=== PATIENT | female | born 1960 | race Caucasian/White ===

== ENCOUNTER 2021-09-01 04:24 | Day surgery (SDC) | payer OTHER, SELFPAY ==
[2021-08-24 09:24] VITALS: BMI 23.5
--- NOTE | 2021-08-24 09:32 | PC.NURSE ---
Report to the Outpatient Waiting Room, entrance under the green pavilion located off [facility], at time 0830 on date 09/01/21. OR Time: 1030. - You and your visitor will be asked a series of questions to screen for COVID 19 for your protection. - A mask is required within the hospital. One visitor will be allowed to accompany the patient into the hospital. Patients visitor will be instructed to remain with patient at all times or leave the building. We will allow the visitor to come back to the postoperative area when patient is ready. Preoperative COVID Testing Requirements: No COVID Test needed if: (proof is required; if not received patient will have Rapid Test prior to entry) - Patient has received COVID Vaccine at least 14 days prior to procedure date or - Patient has positive COVID test result within last 90 days of surgery date. COVID Test needed if above criteria is not met Patients may have clear liquids (water, carbonated beverages, clear teas, apple juice) until 3 hours prior to surgery with a maximum of 20 ounces. - No food from midnight until time of surgery Take the following medications with a SIP of water the morning of surgery: LEVOTHYROXINE Medications to discontinue per physician: VITAMINS/SUPPLEMENTS Date to take last dose: 08/28/21 Please no make-up, nail palestinian, hairspray, perfume, deodorant, or body powder the day of surgery. No jewelry (including any body piercings) or valuables the day of surgery, leave them at home. Please take a shower or bath the night before, or the morning of, surgery with an antibacterial soap. Wear comfortable, loose fitting clothing. - Jewelry must be removed prior to entering the operating room. Rings and piercings that are not removed may be cut off. - The hospital will not accept responsibility for valuables. - Please leave all valuables, including medications, at home the day of surgery. If you are going home after surgery, a licensed local company tanker driver must drive you home. - NO public transportation without another adult. - We recommend that an adult stay with you for 24 hours following discharge. - We also recommend that you do not drive, make important decision, drink alcoholic beverages, or take any drugs that were not prescribed by your health care provider for at least 24 hours after your discharge time. Follow any additional instructions given to you from your surgeon. Telephone instructions given to JENNIFER MIKE and asked if any additional questions and then verbalized understanding. Patient advised to call surgeon office or pre surgery nurse liaison [phone] if any additional questions.
--- NOTE | 2021-09-01 06:44 | P.PNAN_ITS ---
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 acidophilus-L. rhamnosus 1 cap PO DAILY 08/24/21 09/01/21 History [Probiotic] cholecalciferol (vitamin D3) 50 mcg PO DAILY 08/24/21 09/01/21 History [Vitamin D3] levothyroxine 75 mcg PO DAILY 08/24/21 09/01/21 History multivitamin 1 tablet PO DAILY 08/24/21 09/01/21 History Patient hx anesthesia problems: none Family hx anesthesia problems: none Results Review: All pre-operative results and documents have been reviewed as part of the pre-operative evaluation. FOR[facility]LY [facility] Past Medical History Medical History (Updated 09/01/21 @ 06:44 by Aidan Stacy MD) Hypothyroidism Surgical History Surgical History (Updated 09/01/21 @ 06:44 by Aidan Stacy MD) History of foot surgery Social History Social History Smoking status: Never smoker Alcohol intake: current Drinks per week: 1 Substance use: never Substance use type: does not use Living arrangements: with family Additional living arrangements comments: CURRENTLY WORKING OUT OF TOWN Spiritual care concerns: No Anes - Eval Final PreProcedure Day of Procedure 09/01/21 06:44 Patient weight: normal Heart: regular rate and rhythm Lungs: clear to auscultation Airway: Mallampati scale class III and special considerations poor opening (small mouth, no hx of TMJ issues) Neurological: alert and oriented Last oral intake: >/= 8 hours ASA classification: II Emergent: no Anesthetic plan: proceed Anesthesia type and monitoring: general GIVS and standard monitoring Results Review: All pre-operative results and documents have been reviewed as part of the pre-operative evaluation. Informed Consent: The patient's anesthetic plan and its attendant risks and benefits were discussed with the patient/family/POA. Questions were solicited and answers provided to the satisfaction of the patient/family/POA.
[2021-09-01] MEDS: LACTATED RINGERS 1,000 ML 30 ML IV CONT (06:56)
--- NOTE | 2021-09-01 07:07 | WPDHPUPDATE1 ---
History and Physical Update Update Date/Time: 09/01/21 07:07 History and Physical has been reviewed, including an updated exam of the patient. There are NO changes in the patient's condition. Risks, benefits, and alternatives have been discussed and questions answered. Patient agrees to proceed with procedure.
[2021-09-01 07:09] VITALS: BP 107/55; PULSE 58; RESP 16; TEMP 36.6; O2SAT 98
[2021-09-01] MEDS: ceFAZolin 2 GM/D5W 50 ML 2 GM/50 ML BAG IVPB (07:25)
[2021-09-01] MEDS: LIDOCAINE HCL 2% LOCAL INJ 20 ML VIAL 10 ML INFILTRATE (07:38)
[2021-09-01] MEDS: BUPIVACAINE HCL 0.5% PF 30 ML VIAL 10 ML INFILTRATE (07:39)
[2021-09-01 08:03] VITALS: BP 85/45; PULSE 58; RESP 14; O2SAT 95
--- NOTE | 2021-09-01 08:10 | P.OP_ITS ---
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 A pneumatic ankle tourniquet was placed about the patient's ipsilateral ankle. Following IV sedation, local anesthesia was obtained about the ankle utilizing 20 mL of 0.5% Marcaine plain and 2% Lidocaine plain to with an ankle ring block. The foot was then scrubbed, prepped, and draped in the usual aseptic manner. An Esmarch bandage was then used to exsanguinate the patient's foot and the pneumatic ankle tourniquet was then inflated. An incision was made along the dorsal 3rd inter metatarsal space. All bleeders were cauterized as necessary. The Deep transverse intermetatarsal ligament was severed. Next, dissection was continued deep to the proper digital plantar nerve which was hypertrophied and amorphous. It was dissected proximal to the central metatarsal shaft area and transected next the distal branches were dissected and then transected to the affected third and fourth digits. The neural tissue was sent for gross and histo. The Deep subcutaneous tissue was reapproximated with 4.0 Vicryl and the skin was reapproximated with 4.0 Monocryl. Upon completion of the procedure, the dorsal incision was dressed with Steri- Strips, Adaptic, 4x4s, Kerlix, and Coban. The pneumatic ankle tourniquet was then deflated and a prompt hyperemic response was noted to all digits of the affected foot. A surgical shoe was then applied. The patient did very well with the procedure and the anesthesia. The patient was transferred to the recovery room with vital signs stable and vascular status intact to all toes of the affected foot. Following a period of postoperative monitoring, the patient will be discharged home on the following written and oral postoperative instructions: 1. The patient should keep the dressing clean, dry, and intact. Use a cast protector bag with showers. 2. The patient will be strictly protected weight bearing with a surgical shoe. 3. Patient should ice and elevate the foot when at rest. 4. The patient is to contact Dr. Dominguez for all postop care and if any problems arise. 5. Prescriptions were written for Percocet 5/325 dispensed 40 to be taken 1 p.o. q.4-6 hours as needed for severe pain. Estimated Blood Loss -1.0 Tourniquet Time 17 Drains No Packing No Pathology Yes Complications No immediate complications Condition Stable Disposition Same day
[2021-09-01 08:30] VITALS: BP 111/63; PULSE 56; RESP 14; O2SAT 98
[2021-09-01 09:00] VITALS: BP 129/66; PULSE 57; RESP 14
== END 2021-09-01 09:12 | disposition home or self-care (01) ==
PROVIDERS: PCP Nurse Practitioner Family; Visit Provider Podiatrist Foot & Ankle Surgery
PROC: (CPT 28080; principal; 2021-09-01 07:30)
DX: G57.61 Lesion of plantar nerve, right lower limb (principal); E03.9 Hypothyroidism, unspecified; M25.571 Pain in right ankle and joints of right foot
CPT/HCPCS: 28080; 88304; J0690; J2250; J2704; J3010; J7120